=== PATIENT | male | born 1965 | race Caucasian/White ===

== ENCOUNTER 2023-07-17 12:32 | Inpatient (IN) | payer OTHER ==
[2023-07-17] MEDS ORDERED: PIPERACILLIN/TAZOB 4.5 GM 4.5 GM/100 ML BAG IVPB ONE (13:27)
[2023-07-17] MEDS: PIPERACILLIN/TAZOB 4.5 GM 4.5 GM in DEXTROSE 5%-WATER 100 ML IVPB ONE (13:58)
[2023-07-17 13:59] LABS: BASO % 0.8 % (0-2.0); EOS % 1.3 % (0-4.5); HEMATOCRIT 39.9 % (35.4-49); HEMOGLOBIN 13.2 GM/dL (11.7-16.9); MCH 26.2 pg (25.7-33.7); MEAN CELL VOLUME 79.6 fl (80-96); MEAN PLT VOLUME 6.8 fl (7.5-11.1); MONO % 6.4 % (3.8-10.2); NEUT % 74.5 % (42.8-82.8); PLATELET COUNT 509 10^3/uL (134-434); RBC 5.01 M/mm3 (4.00-5.60); RDW 13.7 % (11.9-15.9); WHITE BLOOD COUNT 10.1 K/mm3 (4.0-10.0)
[2023-07-17 14:06] LABS: INR 1.06 (0.83-1.09); PROTHROMBIN TIME (PATIENT) 12.2 SEC (9.7-13.0)
[2023-07-17 14:17] LABS: POTASSIUM 5.1 mmol/L (3.5-5.1)
[2023-07-17 14:19] LABS: CALCIUM 9.8 mg/dL (8.5-10.1)
[2023-07-17 14:20] LABS: ALBUMIN 3.8 g/dl (3.4-5.0); BLOOD UREA NITROGEN 27.8 mg/dL (7-18)
[2023-07-17 14:23] LABS: CREATININE 1.5 mg/dL (0.55-1.3)
[2023-07-17 14:24] LABS: BILIRUBIN,TOTAL 0.2 mg/dL (0.2-1)
[2023-07-17 14:25] LABS: TOT PROT 8.6 g/dl (6.4-8.2)
[2023-07-17 14:49] LABS: ERYTHROCYTE SEDIMENTATION RATE 44 mm/hr (0-20)
[2023-07-17] MEDS ORDERED: VANCOMYCIN 1 GRAM (PRE-DOCKED) 1,000 MG/250 ML BAG IVPB ONE (15:25)
[2023-07-17] MEDS: VANCOMYCIN 1,000 MG in DEXTROSE 5%-WATER - 250 ML IVPB ONE (15:37)
[2023-07-17] MEDS ORDERED: INSULIN ASPART SLIDING SCALE (NOVOLOG) 1 VIAL SQ ONE (15:52)
[2023-07-17] MEDS: INSULIN ASPART SLIDING SCALE (NOVOLOG) 1 VIAL SQ SCH (15:55)
[2023-07-17 18:38] VITALS: BMI 25.4
[2023-07-17] MEDS ORDERED: CEFEPIME 1 GM in SODIUM CHLORIDE 100 ML IVPB SCH ×2 (19:30→21:00)
[2023-07-17] MEDS ORDERED: CEFEPIME HCL 1 GM VIAL (RESTRICTED TO ID) IVPB SCH ×2 (21:00)
[2023-07-17] MEDS: CEFEPIME 1 GM in SODIUM CHLORIDE 100 ML IVPB SCH ×2 (21:23→21:25)
[2023-07-17] MEDS: HEPARIN NA (PORCINE) 5,000 UNITS/ML 1ML VIAL SQ SCH (21:26)
[2023-07-17] MEDS: INSULIN (LEVEMIR) 100 UNITS/ML UNITS SQ SCH (21:27)
[2023-07-18] MEDS ORDERED: VANCOMYCIN 1,000 MG in DEXTROSE 5%-WATER - 250 ML IVPB SCH ×2 (02:00→15:30)
[2023-07-18] MEDS ORDERED: VANCOMYCIN/WATER FOR INJ (PEG) 1,000 MG/200 ML BAG IVPB SCH ×2 (03:00→15:30)
[2023-07-18] MEDS: VANCOMYCIN 1,000 MG in DEXTROSE 5%-WATER - 250 ML IVPB SCH (03:22)
[2023-07-18 08:18] LABS: BASO % 0.6 % (0-2.0); EOS % 1.6 % (0-4.5); HEMOGLOBIN 13.3 GM/dL (11.7-16.9); LYMPH % 19.4 % (8-40); MCH 26.8 pg (25.7-33.7); MEAN CELL VOLUME 78.7 fl (80-96); MEAN PLT VOLUME 6.9 fl (7.5-11.1); MONO % 6.7 % (3.8-10.2); NEUT % 71.7 % (42.8-82.8); PLATELET COUNT 473 10^3/uL (134-434); RBC 4.96 M/mm3 (4.00-5.60); RDW 13.4 % (11.9-15.9); WHITE BLOOD COUNT 9.1 K/mm3 (4.0-10.0)
[2023-07-18 08:23] LABS: POTASSIUM 5.1 mmol/L (3.5-5.1)
[2023-07-18 08:27] LABS: CALCIUM 9.7 mg/dL (8.5-10.1); CHOLESTEROL 150 mg/dL (50-200)
[2023-07-18 08:28] LABS: ALBUMIN 3.4 g/dl (3.4-5.0); BLOOD UREA NITROGEN 25.3 mg/dL (7-18); LDL CHOLESTEROL (ONLY SJRH) 93 mg/dL (5-100)
[2023-07-18 08:31] LABS: CREATININE 1.4 mg/dL (0.55-1.3); PHOSPHOROUS 3.9 mg/dL (2.5-4.9)
[2023-07-18 08:32] LABS: BILIRUBIN,TOTAL 0.4 mg/dL (0.2-1); TOT PROT 7.3 g/dl (6.4-8.2)
[2023-07-18 08:33] LABS: HDL CHOLESTEROL 36 mg/dL (40-60)
[2023-07-18] MEDS: CEFTRIAXONE 2 GM in DEXTROSE 5%-WATER 100 ML IVPB SCH (15:01)
[2023-07-18 15:03] LABS: URINE APPEARANCE CLEAR; URINE BILIRUBIN NEGATIVE (NEGATIVE); URINE COLOR YELLOW; URINE GLUCOSE (UA) NEGATIVE (NEGATIVE); URINE KETONE NEGATIVE (NEGATIVE); URINE LEUK ESTERASE NEGATIVE (NEGATIVE); URINE NITRITE NEGATIVE (NEGATIVE); URINE PROTEIN NEGATIVE (NEGATIVE); URINE UROBILINOGEN 0.2 mg/dL (0.2-1.0)
[2023-07-18] MEDS: ATORVASTATIN CA 20 MG TABLET (FP) PO SCH (21:28)
[2023-07-19 08:59] LABS: HEMATOCRIT 39.3 % (35.4-49); MCH 26.6 pg (25.7-33.7); MEAN CELL VOLUME 80.5 fl (80-96); MEAN PLT VOLUME 7.2 fl (7.5-11.1); PLATELET COUNT 445 10^3/uL (134-434); RBC 4.88 M/mm3 (4.00-5.60); RDW 13.4 % (11.9-15.9); WHITE BLOOD COUNT 8.4 K/mm3 (4.0-10.0)
[2023-07-19 09:19] LABS: POTASSIUM 4.8 mmol/L (3.5-5.1)
[2023-07-19 09:27] LABS: CALCIUM 9.4 mg/dL (8.5-10.1)
[2023-07-19 09:28] LABS: BLOOD UREA NITROGEN 28.7 mg/dL (7-18)
[2023-07-19 09:31] LABS: CREATININE 1.2 mg/dL (0.55-1.3)
[2023-07-20] MEDS: INSULIN (LEVEMIR) 100 UNITS/ML UNITS SQ ONE (13:14)
[2023-07-20] MEDS: POLYETHYLENE GLYCOL (HEALTHYLAX) 3350 17 GM PACKET PO SCH (13:56)
[2023-07-20] MEDS ORDERED: INSULIN ASPART SLIDING SCALE (NOVOLOG) 1 VIAL SQ ONE (18:10)
[2023-07-20] MEDS ORDERED: INSULIN (LEVEMIR) 100 UNITS/ML UNITS SQ ONE (18:10)
[2023-07-20] MEDS: SENNOSIDES 8.8 MG/5 ML SYRUP PO SCH (21:58)
[2023-07-20] MEDS: POLYETHYLENE GLYCOL (HEALTHYLAX) 3350 17 GM PACKET PO ONE (21:58)
[2023-07-20] MEDS: INSULIN (LEVEMIR) 100 UNITS/ML UNITS SQ SCH (21:59)
[2023-07-20] MEDS: MINERAL OIL ENEMA 133 ML ENEMA RC ONE (22:39)
[2023-07-22 10:33] LABS: HEMOGLOBIN 12.7 GM/dL (11.7-16.9); MCH 26.4 pg (25.7-33.7); MCHC 33.5 g/dl (32.0-35.9); MEAN CELL VOLUME 78.9 fl (80-96); MEAN PLT VOLUME 7.7 fl (7.5-11.1); PLATELET COUNT 406 10^3/uL (134-434); RBC 4.82 M/mm3 (4.00-5.60); RDW 13.4 % (11.9-15.9); WHITE BLOOD COUNT 9.3 K/mm3 (4.0-10.0)
[2023-07-22 10:49] LABS: POTASSIUM 4.5 mmol/L (3.5-5.1)
[2023-07-22 10:53] LABS: BLOOD UREA NITROGEN 19.8 mg/dL (7-18); CALCIUM 8.9 mg/dL (8.5-10.1)
[2023-07-22 10:54] LABS: ALBUMIN 3.5 g/dl (3.4-5.0)
[2023-07-22 10:59] LABS: BILIRUBIN,TOTAL 0.4 mg/dL (0.2-1); TOT PROT 7.6 g/dl (6.4-8.2)
[2023-07-22 11:17] LABS: ERYTHROCYTE SEDIMENTATION RATE 48 mm/hr (0-20)
[2023-07-23 10:03] LABS: INR 1.05 (0.83-1.09); PROTHROMBIN TIME (PATIENT) 12.1 SEC (9.7-13.0)
[2023-07-23] MEDS: CEFTRIAXONE 2 GM in DEXTROSE 5%-WATER 100 ML IVPB SCH (19:53)
[2023-07-24] MEDS ORDERED: GENTAMICIN SO4 80 MG/2 ML VIAL ONE (08:18)
[2023-07-24] MEDS ORDERED: LIDOCAINE HCL 1%, 10 MG/ML (20ML VIAL) ONE (08:18)
[2023-07-24] MEDS ORDERED: DEXAMETHASONE SOD PHOSPHATE 4 MG/1 ML VIAL ONE (08:19)
[2023-07-24] MEDS ORDERED: BUPIVACAINE HCL/PF 0.5% (5MG/ML) 10 ML VIAL ONE (08:19)
[2023-07-24] MEDS ORDERED: MIDAZOLAM HCL 2 MG/2 ML SINGLE DOSE VIAL ONE (09:02)
[2023-07-24] MEDS ORDERED: PROPOFOL 20 ML ONE ×2 (09:02→09:30)
[2023-07-24] MEDS ORDERED: FENTANYL CITRATE/PF 50 MCG/ML VIAL ONE (09:02)
[2023-07-24] MEDS: LIDOCAINE HCL 1%, 10 MG/ML (20ML VIAL) NR ONE (09:23)
[2023-07-24] MEDS: BUPIVACAINE HCL/PF 0.5% (5 MG/ML) 30 ML VIAL IJ ONE (09:23)
[2023-07-24] MEDS: GENTAMICIN SO4 80 MG/2 ML VIAL IVPB ONE (09:44)
[2023-07-24 12:10] LABS: BASO % 0.5 % (0-2.0); EOS % 1.5 % (0-4.5); HEMATOCRIT 38.1 % (35.4-49); HEMOGLOBIN 12.8 GM/dL (11.7-16.9); LYMPH % 16.4 % (8-40); MCH 26.9 pg (25.7-33.7); MCHC 33.7 g/dl (32.0-35.9); MEAN CELL VOLUME 79.9 fl (80-96); MEAN PLT VOLUME 7.5 fl (7.5-11.1); MONO % 6.6 % (3.8-10.2); PLATELET COUNT 400 10^3/uL (134-434); RBC 4.76 M/mm3 (4.00-5.60); RDW 13.2 % (11.9-15.9); WHITE BLOOD COUNT 10.9 K/mm3 (4.0-10.0)
[2023-07-24 12:25] LABS: POTASSIUM 4.5 mmol/L (3.5-5.1)
[2023-07-24 12:33] LABS: CALCIUM 9.5 mg/dL (8.5-10.1)
[2023-07-24 12:34] LABS: BLOOD UREA NITROGEN 16.8 mg/dL (7-18)
[2023-07-24 12:37] LABS: CREATININE 0.9 mg/dL (0.55-1.3)
[2023-07-24] MEDS: ACETAMINOPHEN 325 MG TABLET (FP) PO PRN (16:53)
[2023-07-25] MEDS: CLOPIDOGREL BISULFATE 75 MG TABLET (FP) PO SCH (13:41)
[2023-07-25] MEDS: ATORVASTATIN CA 20 MG TABLET (FP) PO SCH (22:02)
[2023-07-26] MEDS: POLYETHYLENE GLYCOL (HEALTHYLAX) 3350 17 GM PACKET PO SCH (09:46)
[2023-07-26] MEDS: CEFTRIAXONE 2 GM in DEXTROSE 5%-WATER 100 ML IVPB SCH (09:46)
[2023-07-26] MEDS: INSULIN ASPART SLIDING SCALE (NOVOLOG) 1 VIAL SQ SCH (12:12)
[2023-07-26] MEDS: ENOXAPARIN NA (PORCINE) 40 MG/0.4 ML DISP.SYRIN SQ SCH (12:13)
[2023-07-26] MEDS: VANCOMYCIN PREMIX 1.5 GM 1,500 MG/300 ML BAG IVPB SCH (13:23)
[2023-07-26] MEDS: INSULIN (LEVEMIR) 100 UNITS/ML UNITS SQ SCH (21:37)
[2023-07-26] MEDS: SENNOSIDES 8.8 MG/5 ML SYRUP PO SCH (21:37)
[2023-07-26] MEDS: ACETAMINOPHEN 325 MG TABLET (FP) PO PRN (22:20)
[2023-07-27] MEDS: DAPTOMYCIN 500 MG in SODIUM CHLORIDE 50 ML IVPB SCH (16:28)
[2023-07-29 08:50] LABS: BLOOD UREA NITROGEN 17.5 mg/dL (7-18)
[2023-07-29 08:53] LABS: CREATININE 1.1 mg/dL (0.55-1.3)
[2023-07-29 18:24] VITALS: RESP 18
[2023-07-30] MEDS: INSULIN (LEVEMIR) 100 UNITS/ML UNITS SQ SCH (10:12)
[2023-07-31] MEDS: AMPICILLIN NA/SULBACTAM NA 3 GM in SODIUM CHLORIDE 100 ML IVPB SCH (14:48)
[2023-08-01 15:03] VITALS: BP 116/73; PULSE 98; TEMP 98.7
== END 2023-08-01 18:05 | disposition home or self-care (01) | DRG 617 ==
LOC: JER 12:32 → JERBED 15:28 → J5S 17:49
PROVIDERS: ADMIT Internal Medicine; ATTEND Internal Medicine
PROC: 0Y6U0Z0 Detachment at Left 3rd Toe, Complete, Open Approach (ICD-10-PCS; principal; 2023-07-24 08:30)
PROC: 02HV33Z Insertion of Infusion Device into Superior Vena Cava, Percutaneous Approach (ICD-10-PCS; 2023-07-28)
PROC: B518ZZA Fluoroscopy of Superior Vena Cava, Guidance (ICD-10-PCS; 2023-07-28)
DX: E11.69 Type 2 diabetes mellitus with other specified complication (principal); E11.52 Type 2 diabetes mellitus with diabetic peripheral angiopathy with gangrene; M86.8X7 Other osteomyelitis, ankle and foot; I96 Gangrene, not elsewhere classified; L97.528 Non-pressure chronic ulcer of other part of left foot with other specified severity; B95.2 Enterococcus as the cause of diseases classified elsewhere; N17.9 Acute kidney failure, unspecified; E11.65 Type 2 diabetes mellitus with hyperglycemia; I10 Essential (primary) hypertension; E78.5 Hyperlipidemia, unspecified; E11.621 Type 2 diabetes mellitus with foot ulcer
CPT/HCPCS: 36415; 36569; 73630-TC-LT; 73718-TC-LT; 75635-TC; 76775-TC; 80048; 80053; 80061; 81003; 82550; 82962; 83036; 83735; 84100; 85025; 85027; 85610; 85651; 85730; 86140; 86850; 86900; 86901; 87040; 87070; 87186; 87205; 88305-TC; 88311-TC; 93005; 93010; 99285-25; J0878; J1644; Q9967

== ENCOUNTER 2023-08-24 16:45 | Inpatient (IN) | payer OTHER ==
[2023-08-24] MEDS ORDERED: ACETAMINOPHEN INJECTION 100 ML IVPB ONE (17:34)
[2023-08-24 17:48] LABS: VENOUS O2 SATURATION 44.4 % (70-80); VENOUS PCO2 36.3 mmHg (38-52); VENOUS PH 7.356 (7.310-7.410)
[2023-08-24 17:53] LABS: BASO % 0.4 % (0-2.0); EOS % 0.3 % (0-4.5); HEMATOCRIT 31.7 % (35.4-49); HEMOGLOBIN 10.5 GM/dL (11.7-16.9); LYMPH % 9.6 % (8-40); MCHC 33.3 g/dl (32.0-35.9); MEAN PLT VOLUME 7.3 fl (7.5-11.1); MONO % 3.7 % (3.8-10.2); PLATELET COUNT 251 10^3/uL (134-434); RBC 4.06 M/mm3 (4.00-5.60); RDW 13.8 % (11.9-15.9); WHITE BLOOD COUNT 7.3 K/mm3 (4.0-10.0)
[2023-08-24] MEDS: ACETAMINOPHEN 1000 MG/100 ML BAG IVPB ONE (17:53)
[2023-08-24] MEDS: SODIUM CHLORIDE 1,000 ML IV STA (17:53)
[2023-08-24] MEDS ORDERED: VANCOMYCIN 1 GRAM (PRE-DOCKED) 1,000 MG/250 ML BAG IVPB ONE (17:55)
[2023-08-24] MEDS ORDERED: ONDANSETRON 4 MG/2 ML VIAL ONE (17:55)
[2023-08-24] MEDS ORDERED: FAMOTIDINE 20 MG/50 ML IVPB 20 MG/50 ML MG IVPB ONE (17:56)
[2023-08-24] MEDS ORDERED: CEFEPIME 1 GM/100 ML BAG IVPB ONE (17:56)
[2023-08-24] MEDS: FAMOTIDINE 20 MG/50 ML IVPB 20 MG/50 ML MG IVPB ONE (18:05)
[2023-08-24] MEDS: VANCOMYCIN 1,000 MG in DEXTROSE 5%-WATER - 250 ML IVPB ONE (18:05)
[2023-08-24] MEDS: ONDANSETRON 4 MG/2 ML VIAL IVPUSH ONE (18:05)
[2023-08-24] MEDS: CEFEPIME HCL 1 GM VIAL (RESTRICTED TO ID) IVPB ONE (18:05)
[2023-08-24 18:12] LABS: POTASSIUM 3.7 mmol/L (3.5-5.1)
[2023-08-24 18:15] LABS: CALCIUM 8.1 mg/dL (8.5-10.1)
[2023-08-24 18:16] LABS: ALBUMIN 3.2 g/dl (3.4-5.0); BLOOD UREA NITROGEN 18.6 mg/dL (7-18)
[2023-08-24 18:18] LABS: CREATININE 1.4 mg/dL (0.55-1.3)
[2023-08-24 18:20] LABS: BILIRUBIN,TOTAL 0.6 mg/dL (0.2-1); TOT PROT 6.4 g/dl (6.4-8.2)
[2023-08-24 18:31] LABS: LACTIC ACID 2.3 mmol/L (0.4-2.0)
[2023-08-24 22:35] LABS: PH,URINE 6.5 (5.0-8.0); URINE APPEARANCE CLEAR; URINE BILIRUBIN NEGATIVE (NEGATIVE); URINE COLOR YELLOW; URINE GLUCOSE (UA) 1+ (NEGATIVE); URINE KETONE NEGATIVE (NEGATIVE); URINE LEUK ESTERASE NEGATIVE (NEGATIVE); URINE NITRITE NEGATIVE (NEGATIVE); URINE PROTEIN NEGATIVE (NEGATIVE); URINE UROBILINOGEN 0.2 mg/dL (0.2-1.0)
[2023-08-25 02:28] LABS: LACTIC ACID 3.9 mmol/L (0.4-2.0)
[2023-08-25] MEDS: LACTATED RINGERS SOLUTION 1,000 ML/1,000 ML INFUS.BAG IV SCH ×2 (02:39→06:38)
[2023-08-25 03:04] VITALS: BMI 22.2
[2023-08-25] MEDS: ACETAMINOPHEN 1000 MG/100 ML BAG IVPB ONE (03:17)
[2023-08-25] MEDS: LACTATED RINGERS SOLUTION 1,000 ML/1,000 ML INFUS.BAG IV STA (05:03)
[2023-08-25] MEDS: VANCOMYCIN/WATER FOR INJ (PEG) 1,000 MG/200 ML BAG IVPB SCH (05:20)
[2023-08-25] MEDS: INSULIN ASPART SLIDING SCALE (NOVOLOG) 1 VIAL SQ SCH (06:06)
[2023-08-25] MEDS: VANCOMYCIN 1,000 MG in DEXTROSE 5%-WATER - 250 ML IVPB SCH (06:39)
[2023-08-25] MEDS ORDERED: INSULIN (LEVEMIR) 100 UNITS/ML UNITS SQ SCH (10:00)
[2023-08-25 10:36] LABS: HEMATOCRIT 33.3 % (35.4-49); MCH 26.2 pg (25.7-33.7); MEAN CELL VOLUME 79.4 fl (80-96); MEAN PLT VOLUME 7.6 fl (7.5-11.1); PLATELET COUNT 215 10^3/uL (134-434); RBC 4.19 M/mm3 (4.00-5.60); RDW 13.8 % (11.9-15.9); WHITE BLOOD COUNT 7.7 K/mm3 (4.0-10.0)
[2023-08-25 10:52] LABS: POTASSIUM 4.1 mmol/L (3.5-5.1)
[2023-08-25] MEDS: PIPERACILLIN/TAZOB 3.375 GM 3.375 GM in DEXTROSE 5%-WATER - 50 ML IVPB SCH (11:00)
[2023-08-25 11:01] LABS: CALCIUM 8.6 mg/dL (8.5-10.1)
[2023-08-25 11:02] LABS: ALBUMIN 3.3 g/dl (3.4-5.0); BLOOD UREA NITROGEN 15.1 mg/dL (7-18); MAGNESIUM 1.6 mg/dL (1.8-2.4)
[2023-08-25] MEDS: CLOPIDOGREL BISULFATE 75 MG TABLET (FP) PO SCH (11:02)
[2023-08-25] MEDS: INSULIN (LEVEMIR) 100 UNITS/ML UNITS SQ SCH (11:03)
[2023-08-25 11:05] LABS: CREATININE 1.2 mg/dL (0.55-1.3)
[2023-08-25 11:06] LABS: BILIRUBIN,TOTAL 0.6 mg/dL (0.2-1); TOT PROT 6.6 g/dl (6.4-8.2)
[2023-08-25] MEDS: ACETAMINOPHEN 1000 MG/100 ML BAG IVPB SCH (13:34)
[2023-08-25] MEDS: amLODIPine BESYLATE 10 MG TABLET (FP) PO SCH (13:52)
[2023-08-25] MEDS: ATORVASTATIN CA 40 MG TABLET (FP) PO SCH (21:16)
[2023-08-25] MEDS: MEROPENEM 1 GM in DEXTROSE 5%-WATER 100 ML IVPB SCH (21:21)
[2023-08-25] MEDS: INSULIN (NOVOLOG) ASPART 100 UNITS/ML 10ML VIAL SQ SCH (22:42)
[2023-08-26] MEDS: PIPERACILLIN/TAZOB 4.5 GM 4.5 GM in DEXTROSE 5%-WATER 100 ML IVPB SCH (02:04)
[2023-08-26] MEDS: SODIUM CHLORIDE 0.9% 500 ML INFUS.BAG IV ONE (07:05)
[2023-08-26] MEDS ORDERED: PIPERACILLIN/TAZOB 3.375 GM 3.375 GM in DEXTROSE 5%-WATER - 50 ML IVPB SCH (10:00)
[2023-08-26 10:36] LABS: HEMOGLOBIN 10.6 GM/dL (11.7-16.9); MCH 26.5 pg (25.7-33.7); MCHC 33.3 g/dl (32.0-35.9); MEAN CELL VOLUME 79.6 fl (80-96); MEAN PLT VOLUME 7.3 fl (7.5-11.1); PLATELET COUNT 173 10^3/uL (134-434); RBC 4.02 M/mm3 (4.00-5.60); RDW 13.6 % (11.9-15.9); WHITE BLOOD COUNT 6.2 K/mm3 (4.0-10.0)
[2023-08-26 10:43] LABS: POTASSIUM 3.9 mmol/L (3.5-5.1)
[2023-08-26 11:07] LABS: CALCIUM 8.2 mg/dL (8.5-10.1)
[2023-08-26 11:08] LABS: ALBUMIN 3.2 g/dl (3.4-5.0); BLOOD UREA NITROGEN 18.4 mg/dL (7-18); MAGNESIUM 1.8 mg/dL (1.8-2.4)
[2023-08-26 11:10] LABS: PHOSPHOROUS 3.9 mg/dL (2.5-4.9)
[2023-08-26 11:11] LABS: CREATININE 1.2 mg/dL (0.55-1.3)
[2023-08-26 11:12] LABS: BILIRUBIN,TOTAL 0.7 mg/dL (0.2-1); TOT PROT 6.9 g/dl (6.4-8.2)
[2023-08-26] MEDS: MEROPENEM 1 GM in DEXTROSE 5%-WATER 100 ML IVPB SCH (15:57)
[2023-08-27 10:16] LABS: HEMATOCRIT 30.4 % (35.4-49); HEMOGLOBIN 10.3 GM/dL (11.7-16.9); MCH 26.3 pg (25.7-33.7); MEAN CELL VOLUME 77.3 fl (80-96); MEAN PLT VOLUME 7.7 fl (7.5-11.1); PLATELET COUNT 161 10^3/uL (134-434); RBC 3.93 M/mm3 (4.00-5.60); RDW 14.2 % (11.9-15.9); WHITE BLOOD COUNT 3.5 K/mm3 (4.0-10.0)
[2023-08-27 10:27] LABS: POTASSIUM 3.7 mmol/L (3.5-5.1)
[2023-08-27 10:35] LABS: CALCIUM 8.1 mg/dL (8.5-10.1)
[2023-08-27 10:36] LABS: ALBUMIN 2.9 g/dl (3.4-5.0); BLOOD UREA NITROGEN 12.3 mg/dL (7-18)
[2023-08-27 10:39] LABS: CREATININE 0.9 mg/dL (0.55-1.3); PHOSPHOROUS 2.6 mg/dL (2.5-4.9)
[2023-08-27 10:41] LABS: BILIRUBIN,TOTAL 0.4 mg/dL (0.2-1); TOT PROT 6.5 g/dl (6.4-8.2)
[2023-08-27] MEDS ORDERED: INSULIN ASPART SLIDING SCALE (NOVOLOG) 1 VIAL SQ ONE (17:05)
[2023-08-28 09:40] LABS: HEMATOCRIT 33.6 % (35.4-49); HEMOGLOBIN 11.4 GM/dL (11.7-16.9); MCH 26.4 pg (25.7-33.7); MEAN CELL VOLUME 77.6 fl (80-96); MEAN PLT VOLUME 7.7 fl (7.5-11.1); PLATELET COUNT 218 10^3/uL (134-434); RBC 4.33 M/mm3 (4.00-5.60); RDW 14.2 % (11.9-15.9); WHITE BLOOD COUNT 3.9 K/mm3 (4.0-10.0)
[2023-08-28 09:56] LABS: POTASSIUM 4.3 mmol/L (3.5-5.1)
[2023-08-28 10:06] LABS: CALCIUM 8.8 mg/dL (8.5-10.1)
[2023-08-28 10:07] LABS: ALBUMIN 3.4 g/dl (3.4-5.0); BLOOD UREA NITROGEN 14.6 mg/dL (7-18)
[2023-08-28 10:10] LABS: CREATININE 0.8 mg/dL (0.55-1.3); PHOSPHOROUS 2.9 mg/dL (2.5-4.9)
[2023-08-28 10:12] LABS: BILIRUBIN,TOTAL 0.8 mg/dL (0.2-1); TOT PROT 7.2 g/dl (6.4-8.2)
[2023-08-28 15:34] VITALS: RESP 18
[2023-08-28] MEDS ORDERED: MEROPENEM 1 GM VIAL (RESTRICTED TO ID) IVPB ONE (17:49)
[2023-08-29] MEDS: POLYETHYLENE GLYCOL (HEALTHYLAX) 3350 17 GM PACKET PO PRN (22:07)
[2023-08-30] MEDS ORDERED: MEROPENEM 1 GM VIAL (RESTRICTED TO ID) IVPB ONE (01:05)
[2023-08-30] MEDS: ERTAPENEM SODIUM 1 GM in SODIUM CHLORIDE 50 ML IVPB SCH (09:21)
[2023-08-30 11:51] VITALS: BP 117/75; PULSE 76; TEMP 97.9
== END 2023-08-30 02:30 | disposition home or self-care (01) | DRG 314 ==
LOC: JER 16:45 → JERBED 20:16 → J5S 23:37
PROVIDERS: ADMIT Internal Medicine; ATTEND Internal Medicine
PROC: 02PYX3Z Removal of Infusion Device from Great Vessel, External Approach (ICD-10-PCS; principal; 2023-08-28)
DX: T80.211A Bloodstream infection due to central venous catheter, initial encounter (principal); A41.51 Sepsis due to Escherichia coli [E. coli]; N17.9 Acute kidney failure, unspecified; E78.5 Hyperlipidemia, unspecified; R11.2 Nausea with vomiting, unspecified; E11.51 Type 2 diabetes mellitus with diabetic peripheral angiopathy without gangrene; E11.65 Type 2 diabetes mellitus with hyperglycemia; Y83.8 Other surgical procedures as the cause of abnormal reaction of the patient, or of later complication, without mention of misadventure at the time of the procedure; Z89.422 Acquired absence of other left toe(s)
CPT/HCPCS: 0241U-QW; 36415; 71045-TC-FY; 71260-TC; 73630-TC-LT; 74177-TC; 80053; 81003; 82010; 82803; 82962; 83605; 83690; 83735; 84100; 84484; 85025; 85027; 85651; 86140; 87040; 87070; 87186; 93005; 93010; 93925-TC; 97161-GP; 99285-25; J0131; Q9967

== ENCOUNTER 2023-08-31 10:08 | Day surgery (SDC) | payer OTHER ==
[2023-08-31] MEDS: ERTAPENEM SODIUM 1 GM in SODIUM CHLORIDE 50 ML IVPB ONE (11:25)
[2023-08-31 12:03] VITALS: BP 112/67; PULSE 70; RESP 18; TEMP 98.8
== END 2023-08-31 12:03 | disposition home or self-care (01) ==
LOC: FINFUSION 10:08 → FM/S 10:13 → FINFUSION 12:03
PROVIDERS: ATTEND Internal Medicine Infectious Disease
DX: Z16.12 Extended spectrum beta lactamase (ESBL) resistance (principal); B96.29 Other Escherichia coli [E. coli] as the cause of diseases classified elsewhere; R78.81 Bacteremia
CPT/HCPCS: 96365

== ENCOUNTER 2023-09-01 10:42 | Day surgery (SDC) | payer OTHER ==
[2023-09-01] MEDS: ERTAPENEM SODIUM 1 GM in SODIUM CHLORIDE 50 ML IVPB ONE (11:16)
[2023-09-01 12:21] VITALS: BP 106/70; PULSE 63; RESP 16; TEMP 98.4
== END 2023-09-01 12:21 | disposition home or self-care (01) ==
LOC: FINFUSION 10:42 → FM/S 10:42 → FINFUSION 12:21
PROVIDERS: ATTEND Internal Medicine Infectious Disease
DX: Z16.12 Extended spectrum beta lactamase (ESBL) resistance (principal); R78.81 Bacteremia; B96.29 Other Escherichia coli [E. coli] as the cause of diseases classified elsewhere
CPT/HCPCS: 96365

== ENCOUNTER 2023-09-02 10:49 | Day surgery (SDC) | payer OTHER ==
[2023-09-02] MEDS: ERTAPENEM SODIUM 1 GM in SODIUM CHLORIDE 50 ML IVPB SCH (11:25)
[2023-09-02 11:39] VITALS: BP 153/88; PULSE 78; RESP 17; TEMP 98.4
== END 2023-09-02 12:10 | disposition home or self-care (01) ==
LOC: FINFUSION 10:49 → FM/S 10:54 → FINFUSION 12:10
PROVIDERS: ATTEND Internal Medicine Infectious Disease
DX: Z16.12 Extended spectrum beta lactamase (ESBL) resistance (principal); R78.81 Bacteremia; B96.29 Other Escherichia coli [E. coli] as the cause of diseases classified elsewhere
CPT/HCPCS: 96365

== ENCOUNTER 2023-09-03 10:38 | Day surgery (SDC) | payer OTHER ==
[2023-09-03] MEDS: ERTAPENEM SODIUM 1 GM in SODIUM CHLORIDE 50 ML IVPB ONE (11:10)
[2023-09-03 11:38] VITALS: RESP 17; TEMP 97.8
[2023-09-03 12:09] VITALS: BP 126/56; PULSE 64
== END 2023-09-03 12:10 | disposition home or self-care (01) ==
LOC: FINFUSION 10:38 → FM/S 10:39 → FINFUSION 12:10
PROVIDERS: ATTEND Internal Medicine Infectious Disease
DX: Z16.12 Extended spectrum beta lactamase (ESBL) resistance (principal); R78.81 Bacteremia; B96.29 Other Escherichia coli [E. coli] as the cause of diseases classified elsewhere
CPT/HCPCS: 96365

== ENCOUNTER 2023-09-04 10:50 | Day surgery (SDC) | payer OTHER ==
[2023-09-04] MEDS: ERTAPENEM SODIUM 1 GM in SODIUM CHLORIDE 50 ML IVPB ONE (11:29)
[2023-09-04 12:02] VITALS: BP 125/71; PULSE 72; RESP 18; TEMP 98.1
== END 2023-09-04 12:02 | disposition home or self-care (01) ==
LOC: FINFUSION 10:50 → FM/S 10:51 → FINFUSION 12:02
PROVIDERS: ATTEND Internal Medicine Infectious Disease
DX: Z16.12 Extended spectrum beta lactamase (ESBL) resistance (principal); R78.81 Bacteremia; B96.29 Other Escherichia coli [E. coli] as the cause of diseases classified elsewhere
CPT/HCPCS: 96365

== ENCOUNTER 2023-09-05 10:54 | Day surgery (SDC) | payer OTHER ==
[2023-09-05] MEDS: ERTAPENEM SODIUM 1 GM in SODIUM CHLORIDE 50 ML IVPB ONE (11:25)
[2023-09-05 12:00] VITALS: BP 109/78; PULSE 66; RESP 17; TEMP 98.8
== END 2023-09-05 12:06 | disposition home or self-care (01) ==
LOC: FINFUSION 10:54 → FM/S 10:56 → FINFUSION 12:06
PROVIDERS: ATTEND Internal Medicine Infectious Disease
DX: Z16.12 Extended spectrum beta lactamase (ESBL) resistance (principal); R78.81 Bacteremia; B96.29 Other Escherichia coli [E. coli] as the cause of diseases classified elsewhere
CPT/HCPCS: 96365

== ENCOUNTER 2023-09-06 10:46 | Day surgery (SDC) | payer OTHER ==
[2023-09-06] MEDS: ERTAPENEM SODIUM 1 GM in SODIUM CHLORIDE 50 ML IVPB ONE (11:10)
[2023-09-06 12:24] VITALS: BP 101/64; PULSE 77; RESP 17; TEMP 98.8
== END 2023-09-06 12:04 | disposition home or self-care (01) ==
LOC: FINFUSION 10:46 → FM/S 10:47 → FINFUSION 12:04
PROVIDERS: ATTEND Internal Medicine Infectious Disease
DX: Z16.12 Extended spectrum beta lactamase (ESBL) resistance (principal); R78.81 Bacteremia; B96.29 Other Escherichia coli [E. coli] as the cause of diseases classified elsewhere
CPT/HCPCS: 96365

== ENCOUNTER 2023-09-07 10:37 | Day surgery (SDC) | payer OTHER ==
[2023-09-07] MEDS: ERTAPENEM SODIUM 1 GM in SODIUM CHLORIDE 50 ML IVPB ONE (11:16)
[2023-09-07 12:08] VITALS: BP 120/70; PULSE 72; RESP 16; TEMP 98.4
== END 2023-09-07 12:20 | disposition home or self-care (01) ==
LOC: FINFUSION 10:37 → FM/S 10:58 → FINFUSION 12:20
PROVIDERS: ATTEND Internal Medicine Infectious Disease
DX: Z16.12 Extended spectrum beta lactamase (ESBL) resistance (principal); R78.81 Bacteremia; B96.29 Other Escherichia coli [E. coli] as the cause of diseases classified elsewhere
CPT/HCPCS: 96365

== ENCOUNTER 2023-09-08 11:06 | Day surgery (SDC) | payer OTHER ==
[2023-09-08] MEDS: ERTAPENEM SODIUM 1 GM in SODIUM CHLORIDE 50 ML IVPB ONE (11:25)
[2023-09-08 12:07] VITALS: BP 115/71; PULSE 68; RESP 16; TEMP 98.5
== END 2023-09-08 12:08 | disposition home or self-care (01) ==
LOC: FINFUSION 11:06 → FM/S 11:07 → FINFUSION 12:08
PROVIDERS: ATTEND Internal Medicine Infectious Disease
DX: Z16.12 Extended spectrum beta lactamase (ESBL) resistance (principal); R78.81 Bacteremia; B96.29 Other Escherichia coli [E. coli] as the cause of diseases classified elsewhere
CPT/HCPCS: 96365

== ENCOUNTER 2023-09-09 10:55 | Day surgery (SDC) | payer OTHER ==
[2023-09-09] MEDS: ERTAPENEM SODIUM 1 GM in SODIUM CHLORIDE 50 ML IVPB SCH (11:36)
[2023-09-09 12:33] VITALS: BP 99/67; PULSE 72; RESP 18; TEMP 98.2
== END 2023-09-09 12:30 | disposition home or self-care (01) ==
LOC: FINFUSION 10:55 → FM/S 10:56 → FINFUSION 12:30
PROVIDERS: ATTEND Internal Medicine Infectious Disease
DX: Z16.12 Extended spectrum beta lactamase (ESBL) resistance (principal); R78.81 Bacteremia; B96.29 Other Escherichia coli [E. coli] as the cause of diseases classified elsewhere
CPT/HCPCS: 96365

== ENCOUNTER 2023-09-10 10:45 | Day surgery (SDC) | payer OTHER ==
[2023-09-10] MEDS: ERTAPENEM SODIUM 1 GM in SODIUM CHLORIDE 50 ML IVPB ONE (11:21)
[2023-09-10 11:59] VITALS: BP 130/70; PULSE 67; RESP 16; TEMP 98.4
== END 2023-09-10 12:05 | disposition home or self-care (01) ==
LOC: FM/S 10:45 → FINFUSION 10:45
PROVIDERS: ATTEND Internal Medicine Infectious Disease
DX: Z16.12 Extended spectrum beta lactamase (ESBL) resistance (principal); R78.81 Bacteremia; B96.29 Other Escherichia coli [E. coli] as the cause of diseases classified elsewhere
CPT/HCPCS: 96365

== ENCOUNTER 2024-04-11 15:03 | Inpatient (IN) | payer OTHER ==
[2024-04-11] MEDS: SODIUM CHLORIDE 1,000 ML IV STA (16:30)
[2024-04-11] MEDS: ACETAMINOPHEN 1000 MG/100 ML BAG IVPB ONE (16:45)
[2024-04-11 16:46] LABS: BASO % 0.3 % (0-2.0); EOS % 0.2 % (0-4.5); HEMATOCRIT 33.2 % (35.4-49); HEMOGLOBIN 10.5 GM/dL (11.7-16.9); LYMPH % 9.2 % (8-40); MCH 25.4 pg (25.7-33.7); MCHC 31.8 g/dl (32.0-35.9); MEAN CELL VOLUME 80.1 fl (80-96); MEAN PLT VOLUME 7.1 fl (7.5-11.1); MONO % 9.8 % (3.8-10.2); NEUT % 80.5 % (42.8-82.8); PLATELET COUNT 350 10^3/uL (134-434); RBC 4.14 M/mm3 (4.00-5.60); RDW 14.1 % (11.9-15.9); WHITE BLOOD COUNT 13.5 K/mm3 (4.0-10.0)
[2024-04-11] MEDS ORDERED: ACETAMINOPHEN INJECTION 100 ML ONE (16:47)
[2024-04-11 16:51] LABS: INR 1.23 (0.83-1.09); PROTHROMBIN TIME (PATIENT) 13.5 SEC (9.7-13.0)
[2024-04-11 17:01] LABS: POTASSIUM 4.6 mmol/L (3.5-5.1)
[2024-04-11 17:04] LABS: CALCIUM 8.8 mg/dL (8.5-10.1)
[2024-04-11 17:05] LABS: ALBUMIN 3.7 g/dl (3.4-5.0); BLOOD UREA NITROGEN 20.2 mg/dL (7-18)
[2024-04-11 17:08] LABS: CREATININE 1.2 mg/dL (0.55-1.3)
[2024-04-11 17:09] LABS: BILIRUBIN,TOTAL 0.6 mg/dL (0.2-1); TOT PROT 7.6 g/dl (6.4-8.2)
[2024-04-11] MEDS: LACTATED RINGERS SOLUTION 1000 ML INFUS.BAG IV ONE (17:50)
[2024-04-11 18:03] LABS: HIV INTERPRETATION NEGATIVE (NEGATIVE)
[2024-04-11] MEDS ORDERED: PIPERACILLIN/TAZOB 3.375 GM 3.375 GM/50 ML BAG IVPB ONE (18:42)
[2024-04-11] MEDS: PIPERACILLIN/TAZOB 3.375 GM 50 ML IVPB SCH (18:50)
[2024-04-11] MEDS: ACETAMINOPHEN 325 MG TABLET (FP) PO PRN (21:49)
[2024-04-11] MEDS: ATORVASTATIN CA 40 MG TABLET (FP) PO SCH (22:45)
[2024-04-11] MEDS: HEPARIN NA (PORCINE) 5,000 UNITS/ML 1ML VIAL SQ SCH (22:45)
[2024-04-11] MEDS: INSULIN ASPART SLIDING SCALE (NOVOLOG) 1 VIAL SQ SCH (22:47)
[2024-04-12 03:22] VITALS: BMI 28.2
[2024-04-12 08:43] LABS: PH,URINE 6.5 (5.0-8.0); URINE APPEARANCE CLEAR; URINE BILIRUBIN NEGATIVE (NEGATIVE); URINE COLOR YELLOW; URINE GLUCOSE (UA) NEGATIVE (NEGATIVE); URINE KETONE NEGATIVE (NEGATIVE); URINE LEUK ESTERASE NEGATIVE (NEGATIVE); URINE NITRITE NEGATIVE (NEGATIVE); URINE PROTEIN NEGATIVE (NEGATIVE)
[2024-04-12] MEDS: PANTOPRAZOLE 40 MG TABLET PO SCH (09:33)
[2024-04-12 09:57] LABS: BASO % 0.5 % (0-2.0); EOS % 0.2 % (0-4.5); HEMATOCRIT 32.8 % (35.4-49); LYMPH % 10.1 % (8-40); MCH 26.3 pg (25.7-33.7); MCHC 33.7 g/dl (32.0-35.9); MEAN PLT VOLUME 7.1 fl (7.5-11.1); MONO % 8.9 % (3.8-10.2); NEUT % 80.3 % (42.8-82.8); PLATELET COUNT 367 10^3/uL (134-434); RDW 13.8 % (11.9-15.9); WHITE BLOOD COUNT 14.2 K/mm3 (4.0-10.0)
[2024-04-12 10:23] LABS: POTASSIUM 4.3 mmol/L (3.5-5.1)
[2024-04-12 10:29] LABS: CALCIUM 8.6 mg/dL (8.5-10.1)
[2024-04-12 10:30] LABS: ALBUMIN 3.3 g/dl (3.4-5.0); BLOOD UREA NITROGEN 12.9 mg/dL (7-18)
[2024-04-12 10:32] LABS: MAGNESIUM 1.5 mg/dL (1.8-2.4)
[2024-04-12 10:33] LABS: BILIRUBIN,TOTAL 0.6 mg/dL (0.2-1)
[2024-04-12 10:35] LABS: CREATININE 0.9 mg/dL (0.55-1.3)
[2024-04-12 10:36] LABS: TOT PROT 7.3 g/dl (6.4-8.2)
[2024-04-12] MEDS: MAGNESIUM 1GM/D5W 100ML - 100 ML IVPB IVPB ONE (12:37)
[2024-04-12] MEDS: IRON SUCROSE INJECTION 200 MG in SODIUM CHLORIDE 100 ML IVPB ONE (13:16)
[2024-04-13] MEDS: INSULIN (LEVEMIR) 100 UNITS/ML UNITS SQ SCH (06:07)
[2024-04-13 10:21] LABS: HEMATOCRIT 32.2 % (35.4-49); HEMOGLOBIN 10.8 GM/dL (11.7-16.9); MCH 26.5 pg (25.7-33.7); MCHC 33.7 g/dl (32.0-35.9); MEAN CELL VOLUME 78.6 fl (80-96); MEAN PLT VOLUME 7.1 fl (7.5-11.1); PLATELET COUNT 374 10^3/uL (134-434); RDW 14.1 % (11.9-15.9); WHITE BLOOD COUNT 12.4 K/mm3 (4.0-10.0)
[2024-04-13 10:54] LABS: POTASSIUM 4.7 mmol/L (3.5-5.1)
[2024-04-13 11:10] LABS: ALBUMIN 3.1 g/dl (3.4-5.0)
[2024-04-13 11:13] LABS: CALCIUM 8.8 mg/dL (8.5-10.1)
[2024-04-13 11:14] LABS: BLOOD UREA NITROGEN 10.8 mg/dL (7-18)
[2024-04-13 11:16] LABS: BILIRUBIN,TOTAL 0.4 mg/dL (0.2-1); TOT PROT 7.1 g/dl (6.4-8.2)
[2024-04-13 11:17] LABS: CREATININE 0.9 mg/dL (0.55-1.3)
[2024-04-14] MEDS: PIPERACILLIN/TAZOB 4.5 GM 4.5 GM/100 ML BAG IVPB SCH (03:07)
[2024-04-14 08:27] LABS: BASO % 0.3 % (0-2.0); EOS % 0.7 % (0-4.5); HEMATOCRIT 33.3 % (35.4-49); HEMOGLOBIN 11.2 GM/dL (11.7-16.9); LYMPH % 15.8 % (8-40); MCH 26.6 pg (25.7-33.7); MCHC 33.8 g/dl (32.0-35.9); MEAN CELL VOLUME 78.9 fl (80-96); MEAN PLT VOLUME 6.8 fl (7.5-11.1); MONO % 9.8 % (3.8-10.2); NEUT % 73.4 % (42.8-82.8); PLATELET COUNT 412 10^3/uL (134-434); RBC 4.22 M/mm3 (4.00-5.60); RDW 13.8 % (11.9-15.9); WHITE BLOOD COUNT 12.1 K/mm3 (4.0-10.0)
[2024-04-14 08:43] LABS: POTASSIUM 4.7 mmol/L (3.5-5.1)
[2024-04-14 08:49] LABS: ALBUMIN 3.1 g/dl (3.4-5.0); CALCIUM 8.9 mg/dL (8.5-10.1)
[2024-04-14 08:54] LABS: BILIRUBIN,TOTAL 0.6 mg/dL (0.2-1); TOT PROT 7.1 g/dl (6.4-8.2)
[2024-04-14] MEDS: SODIUM CHLORIDE 500 ML IV STA (23:33)
[2024-04-15 08:40] LABS: BASO % 0.7 % (0-2.0); EOS % 1.7 % (0-4.5); HEMATOCRIT 33.5 % (35.4-49); HEMOGLOBIN 11.1 GM/dL (11.7-16.9); LYMPH % 16.3 % (8-40); MCH 26.6 pg (25.7-33.7); MCHC 33.2 g/dl (32.0-35.9); MEAN PLT VOLUME 6.7 fl (7.5-11.1); MONO % 8.2 % (3.8-10.2); NEUT % 73.1 % (42.8-82.8); PLATELET COUNT 465 10^3/uL (134-434); RBC 4.19 M/mm3 (4.00-5.60); RDW 13.6 % (11.9-15.9); WHITE BLOOD COUNT 11.8 K/mm3 (4.0-10.0)
[2024-04-15 08:53] LABS: CALCIUM 9.1 mg/dL (8.5-10.1)
[2024-04-15 08:54] LABS: ALBUMIN 3.2 g/dl (3.4-5.0); BLOOD UREA NITROGEN 14.6 mg/dL (7-18)
[2024-04-15 08:55] LABS: POTASSIUM 4.5 mmol/L (3.5-5.1)
[2024-04-15 08:59] LABS: BILIRUBIN,TOTAL 0.7 mg/dL (0.2-1)
[2024-04-15 09:01] LABS: TOT PROT 7.4 g/dl (6.4-8.2)
[2024-04-15 09:07] LABS: CREATININE 1.2 mg/dL (0.55-1.3)
[2024-04-16] MEDS: IBUPROFEN 400 MG TABLET (FP) PO ONE (20:53)
[2024-04-17 07:06] VITALS: RESP 18
[2024-04-17 09:04] LABS: HEMATOCRIT 34.4 % (35.4-49); MCH 25.8 pg (25.7-33.7); MCHC 32.1 g/dl (32.0-35.9); MEAN CELL VOLUME 80.5 fl (80-96); MEAN PLT VOLUME 6.7 fl (7.5-11.1); PLATELET COUNT 492 10^3/uL (134-434); RBC 4.28 M/mm3 (4.00-5.60); RDW 13.7 % (11.9-15.9); WHITE BLOOD COUNT 11.7 K/mm3 (4.0-10.0)
[2024-04-17 09:17] LABS: POTASSIUM 4.6 mmol/L (3.5-5.1)
[2024-04-17 09:19] LABS: CALCIUM 8.9 mg/dL (8.5-10.1)
[2024-04-17 09:20] LABS: ALBUMIN 3.1 g/dl (3.4-5.0); BLOOD UREA NITROGEN 17.7 mg/dL (7-18)
[2024-04-17 09:22] LABS: CREATININE 1.2 mg/dL (0.55-1.3)
[2024-04-17 09:24] LABS: BILIRUBIN,TOTAL 0.4 mg/dL (0.2-1); TOT PROT 7.3 g/dl (6.4-8.2)
[2024-04-17 14:10] VITALS: BP 121/71; PULSE 78; TEMP 97.9
== END 2024-04-17 17:00 | disposition home or self-care (01) | DRG 872 ==
LOC: JER 15:03 → JERBED 16:40 → J8W 20:23
PROVIDERS: ADMIT Family Medicine; ATTEND Family Medicine
DX: A41.9 Sepsis, unspecified organism (principal); L03.115 Cellulitis of right lower limb; L97.419 Non-pressure chronic ulcer of right heel and midfoot with unspecified severity; M86.171 Other acute osteomyelitis, right ankle and foot; E11.69 Type 2 diabetes mellitus with other specified complication; E11.621 Type 2 diabetes mellitus with foot ulcer; E11.51 Type 2 diabetes mellitus with diabetic peripheral angiopathy without gangrene; E78.5 Hyperlipidemia, unspecified; D50.9 Iron deficiency anemia, unspecified; I10 Essential (primary) hypertension
CPT/HCPCS: 0241U-QW; 36415; 73630-TC-RT-FY; 80053; 80061; 81003; 82272; 82728; 82962; 83036; 83540; 83550; 83605; 83735; 84443; 85025; 85027; 85610; 85651; 86140; 86803; 86850; 86900; 86901; 87040; 87389; 93005; 93010; 93922; 93926-TC; 99285-25; G0463-25; J0131; J1644; J1756

== ENCOUNTER 2024-04-21 09:53 | Inpatient (IN) | payer OTHER ==
[2024-04-21] MEDS ORDERED: ACETAMINOPHEN 500 MG TABLET (FP) ONE (13:10)
[2024-04-21] MEDS: ACETAMINOPHEN 500 MG TABLET (FP) PO ONE (13:14)
[2024-04-21 15:20] LABS: BASO % 1.2 % (0-2.0); HEMATOCRIT 32.5 % (35.4-49); HEMOGLOBIN 10.2 GM/dL (11.7-16.9); LYMPH % 12.7 % (8-40); MCH 25.5 pg (25.7-33.7); MCHC 31.5 g/dl (32.0-35.9); MEAN CELL VOLUME 80.7 fl (80-96); MEAN PLT VOLUME 6.6 fl (7.5-11.1); MONO % 6.5 % (3.8-10.2); NEUT % 77.6 % (42.8-82.8); PLATELET COUNT 483 10^3/uL (134-434); RBC 4.02 M/mm3 (4.00-5.60); RDW 13.8 % (11.9-15.9); WHITE BLOOD COUNT 11.7 K/mm3 (4.0-10.0)
[2024-04-21 15:38] LABS: POTASSIUM 5.2 mmol/L (3.5-5.1)
[2024-04-21 15:40] LABS: CALCIUM 8.9 mg/dL (8.5-10.1)
[2024-04-21 15:41] LABS: ALBUMIN 2.8 g/dl (3.4-5.0); BLOOD UREA NITROGEN 18.6 mg/dL (7-18)
[2024-04-21 15:45] LABS: BILIRUBIN,TOTAL 0.4 mg/dL (0.2-1); TOT PROT 6.9 g/dl (6.4-8.2)
[2024-04-21] MEDS ORDERED: PIPERACILLIN/TAZOB 3.375 GM 3.375 GM/50 ML BAG IVPB ONE ×2 (16:29→18:07)
[2024-04-21 16:36] LABS: HIV INTERPRETATION NEGATIVE (NEGATIVE)
[2024-04-21 16:37] LABS: HCV DIAGNOSTIC IN-HOUSE W/RFLX NON-REACTIVE (NONREACTIVE)
[2024-04-21] MEDS: PIPERACILLIN/TAZOB 3.375 GM 3.375 GM in DEXTROSE 5%-WATER - 50 ML IVPB ONE (16:55)
[2024-04-21] MEDS ORDERED: PIPERACILLIN/TAZOB 3.375 GM 3.375 GM in DEXTROSE 5%-WATER - 50 ML IVPB SCH (18:00)
[2024-04-21] MEDS: PIPERACILLIN/TAZOB 3.375 GM 3.375 GM in DEXTROSE 5%-WATER - 50 ML IVPB SCH (18:34)
[2024-04-21 18:48] VITALS: BMI 27.4
[2024-04-21] MEDS: ATORVASTATIN CA 20 MG TABLET (FP) PO SCH (21:50)
[2024-04-21] MEDS: INSULIN GLARGINE (LANTUS) 100 UNITS/ML UNITS SQ SCH (21:58)
[2024-04-21] MEDS: INSULIN ASPART SLIDING SCALE (NOVOLOG) 1 VIAL SQ SCH (22:00)
[2024-04-22] MEDS: ACETAMINOPHEN 1000 MG/100 ML BAG IVPB PRN (03:35)
[2024-04-22] MEDS: ENOXAPARIN NA (PORCINE) 40 MG/0.4 ML DISP.SYRIN SQ SCH (10:00)
[2024-04-22] MEDS: CLOPIDOGREL BISULFATE 75 MG TABLET (FP) PO SCH (10:01)
[2024-04-22 11:08] LABS: BASO % 0.4 % (0-2.0); EOS % 2.5 % (0-4.5); HEMATOCRIT 35.5 % (35.4-49); HEMOGLOBIN 11.6 GM/dL (11.7-16.9); LYMPH % 17.8 % (8-40); MCH 25.7 pg (25.7-33.7); MCHC 32.5 g/dl (32.0-35.9); MEAN PLT VOLUME 6.6 fl (7.5-11.1); NEUT % 72.3 % (42.8-82.8); PLATELET COUNT 548 10^3/uL (134-434); RDW 14.1 % (11.9-15.9); WHITE BLOOD COUNT 10.4 K/mm3 (4.0-10.0)
[2024-04-22 11:32] LABS: POTASSIUM 4.5 mmol/L (3.5-5.1)
[2024-04-22 11:51] LABS: ALBUMIN 3.3 g/dl (3.4-5.0); BLOOD UREA NITROGEN 17.1 mg/dL (7-18); CALCIUM 9.7 mg/dL (8.5-10.1)
[2024-04-22 11:55] LABS: BILIRUBIN,TOTAL 0.6 mg/dL (0.2-1); TOT PROT 7.5 g/dl (6.4-8.2)
[2024-04-22] MEDS: PIPERACILLIN/TAZOB 3.375 GM 50 ML IVPB SCH (17:40)
[2024-04-22 22:33] LABS: INR 1.25 (0.83-1.09); PROTHROMBIN TIME (PATIENT) 13.6 SEC (9.7-13.0)
[2024-04-23] MEDS ORDERED: BUPIVACAINE HCL/PF 0.5% (5MG/ML) 10 ML VIAL ONE (08:40)
[2024-04-23] MEDS ORDERED: LIDOCAINE HCL 1%, 10 MG/ML (20ML VIAL) ONE (08:40)
[2024-04-23] MEDS ORDERED: PROPOFOL 20 ML ONE (09:00)
[2024-04-23] MEDS ORDERED: MIDAZOLAM HCL 2 MG/2 ML SINGLE DOSE VIAL ONE (09:00)
[2024-04-23] MEDS: LIDOCAINE HCL 1%, 10 MG/ML (20ML VIAL) INF ONE (09:23)
[2024-04-23] MEDS: BUPIVACAINE HCL/PF 0.5% (5MG/ML) 10 ML VIAL IJ ONE (09:23)
[2024-04-23] MEDS ORDERED: VANCOMYCIN 500 MG VIAL (RESTRICTED TO ID ONLY) ONE (09:37)
[2024-04-23] MEDS: PIPERACILLIN/TAZOBACTAM 3.375 GM VIAL IVPB ONE (09:39)
[2024-04-23] MEDS ORDERED: GENTAMICIN SO4 80 MG/2 ML VIAL ONE (09:40)
[2024-04-23] MEDS: GENTAMICIN SO4 80 MG/2 ML VIAL IVPB ONE (09:42)
[2024-04-23] MEDS: VANCOMYCIN 500 MG VIAL (RESTRICTED TO ID ONLY) IVPB ONE (09:50)
[2024-04-23] MEDS ORDERED: ONDANSETRON 4 MG/2 ML VIAL IVPUSH PRN (10:05)
[2024-04-23] MEDS ORDERED: ACETAMINOPHEN INJECTION 100 ML ONE (10:12)
[2024-04-23] MEDS ORDERED: LACTATED RINGERS SOLUTION 1,000 ML IV SCH (10:15)
[2024-04-23] MEDS: ACETAMINOPHEN 1000 MG/100 ML BAG IVPB ONE (12:34)
[2024-04-23] MEDS: INSULIN ASPART SLIDING SCALE (NOVOLOG) 1 VIAL SQ SCH (12:37)
[2024-04-23] MEDS: oxyCODONE HCL 5 MG TABLET PO PRN (16:33)
[2024-04-23] MEDS: PIPERACILLIN/TAZOB 3.375 GM 50 ML IVPB SCH (17:36)
[2024-04-23] MEDS: ATORVASTATIN CA 20 MG TABLET (FP) PO SCH (21:37)
[2024-04-23] MEDS: INSULIN GLARGINE (LANTUS) 100 UNITS/ML UNITS SQ SCH (21:39)
[2024-04-24] MEDS: ACETAMINOPHEN 1000 MG/100 ML BAG IVPB ONE (03:27)
[2024-04-24] MEDS: SODIUM CHLORIDE 500 ML IV STA (07:56)
[2024-04-24 09:31] LABS: HEMATOCRIT 32.4 % (40.1-51.0); HEMOGLOBIN 10.3 g/dL (13.7-17.5); MCHC 31.8 g/dl (32.3-36.5); MEAN CELL VOLUME 81.4 fl (79.0-92.2); MEAN PLT VOLUME 8.4 fl (9.4-12.4); PLATELET COUNT # 475 x10^3/uL (163-337); POTASSIUM 4.7 mmol/L (3.5-5.1); RDW 12.8 % (12.2-16.1)
[2024-04-24 09:36] LABS: CALCIUM 8.9 mg/dL (8.5-10.1)
[2024-04-24 09:37] LABS: ALBUMIN 2.9 g/dl (3.4-5.0); BLOOD UREA NITROGEN 15.7 mg/dL (7-18)
[2024-04-24 09:41] LABS: BILIRUBIN,TOTAL 0.4 mg/dL (0.2-1)
[2024-04-24] MEDS: VANCOMYCIN HCL IN 5 % DEXTROSE 1,500 MG/300 ML BAG IVPB SCH (10:25)
[2024-04-24 12:09] VITALS: RESP 18
[2024-04-25] MEDS: CEFTRIAXONE 2 GM-D5W BAG 2 GM/50 ML BAG IVPB SCH (16:30)
[2024-04-26 15:13] VITALS: PULSE 86
[2024-04-26 15:38] VITALS: BP 156/87; TEMP 98.1
== END 2024-04-26 17:57 | disposition home or self-care (01) | DRG 580 ==
LOC: JER 09:53 → JERBED 15:37 → OBSVTOIN 17:44 → J8W 18:22
PROVIDERS: ADMIT Family Medicine; ATTEND Family Medicine
PROC: 0Y9M0ZZ Drainage of Right Foot, Open Approach (ICD-10-PCS; principal; 2024-04-23 08:30)
PROC: 0QBQ3ZX Excision of Right Toe Phalanx, Percutaneous Approach, Diagnostic (ICD-10-PCS; 2024-04-23 08:30)
DX: L02.611 Cutaneous abscess of right foot (principal); L97.518 Non-pressure chronic ulcer of other part of right foot with other specified severity; E11.69 Type 2 diabetes mellitus with other specified complication; M86.8X7 Other osteomyelitis, ankle and foot; B95.62 Methicillin resistant Staphylococcus aureus infection as the cause of diseases classified elsewhere; E11.51 Type 2 diabetes mellitus with diabetic peripheral angiopathy without gangrene; E11.621 Type 2 diabetes mellitus with foot ulcer; E87.5 Hyperkalemia; E11.40 Type 2 diabetes mellitus with diabetic neuropathy, unspecified; I10 Essential (primary) hypertension; E78.5 Hyperlipidemia, unspecified; D64.9 Anemia, unspecified; Z89.422 Acquired absence of other left toe(s)
CPT/HCPCS: 36415; 73630-TC-RT-FY; 73718-TC-RT; 80053; 82962; 83036; 85025; 85027; 85610; 86803; 87070; 87075; 87186; 87205; 87389; 88304-TC; 94760; 99285-25; C1713; G0378; J0131

== ENCOUNTER 2024-04-27 11:26 | Day surgery (SDC) | payer OTHER ==
[2024-04-27] MEDS: DALBAVANCIN HCL 1,500 MG in DEXTROSE 5%-WATER - 500 ML IVPB ONE (12:31)
[2024-04-27 13:20] VITALS: BP 107/72; PULSE 79; RESP 18; TEMP 97.5
== END 2024-04-27 13:10 | disposition home or self-care (01) ==
LOC: FINFUSION 11:26 → FM/S 11:27 → FINFUSION 13:10
PROVIDERS: ATTEND Internal Medicine Infectious Disease
DX: E11.621 Type 2 diabetes mellitus with foot ulcer (principal); L97.509 Non-pressure chronic ulcer of other part of unspecified foot with unspecified severity; I10 Essential (primary) hypertension; I73.9 Peripheral vascular disease, unspecified; E78.5 Hyperlipidemia, unspecified; Z89.422 Acquired absence of other left toe(s)
CPT/HCPCS: 96365; J0875

== ENCOUNTER 2024-05-04 11:14 | Day surgery (SDC) | payer OTHER ==
[2024-05-04 11:43] VITALS: BP 112/64; RESP 17; TEMP 98.2
[2024-05-04] MEDS: DALBAVANCIN HCL 1,500 MG in DEXTROSE 5%-WATER - 500 ML IVPB ONE (12:04)
[2024-05-04 12:58] VITALS: PULSE 82
== END 2024-05-04 13:02 | disposition home or self-care (01) ==
LOC: FINFUSION 11:14 → FM/S 11:19 → FINFUSION 13:02
PROVIDERS: ATTEND Internal Medicine Infectious Disease
DX: E11.621 Type 2 diabetes mellitus with foot ulcer (principal); L97.519 Non-pressure chronic ulcer of other part of right foot with unspecified severity; M86.8X7 Other osteomyelitis, ankle and foot
CPT/HCPCS: 96365; J0875